=== PATIENT | female | born 1950 | race Caucasian/White ===

== ENCOUNTER 2017-11-23 19:07 | Emergency (ER) | payer MEDICAID, MEDICARE ==
[~2017-11-23] VITALS: Ht 162.6 cm; Wt 48.8 kg
[~2017-11-23 19:07] MED LIST: ASPI325T17 PO; NICO-486 TD; SIMV20TA PO
[2017-11-23 19:09] VITALS: BP 110/72
== END 2017-11-23 20:49 | disposition home or self-care (01) ==
LOC: ED 20:43
DX: S32.020A Wedge compression fracture of second lumbar vertebra, initial encounter for closed fracture (principal); M48.56XA Collapsed vertebra, not elsewhere classified, lumbar region, initial encounter for fracture; I10 Essential (primary) hypertension; F17.200 Nicotine dependence, unspecified, uncomplicated; Z72.9 Problem related to lifestyle, unspecified; X58.XXXA Exposure to other specified factors, initial encounter; Y93.89 Activity, other specified; Y92.89 Other specified places as the place of occurrence of the external cause; Y99.8 Other external cause status
CPT/HCPCS: 72110; 99284

== ENCOUNTER 2020-02-23 21:49 | Emergency (ER) | payer MEDICARE ==
--- NOTE | 2020-02-23 21:54 | NUR ---
PT STANDING IN SANDERS, INSISTING SHE NEEDS TO LEAVE, STATED "YOU CAN'T HOLD ME". PT AMBULATORY TO EXIT W/ STEADY GAIT.
== END 2020-02-23 21:58 | disposition left against medical advice (07) ==
LOC: ED 21:51
DX: F10.10 Alcohol abuse, uncomplicated (principal); Z53.21 Procedure and treatment not carried out due to patient leaving prior to being seen by health care provider

== ENCOUNTER 2021-01-11 18:22 | Inpatient (IN) | payer MEDICARE ==
[~2021-01-11] VITALS: Ht 162.6 cm; Wt 53.5 kg
--- NOTE | 2021-01-11 18:35 | NUR ---
cc "im not feeling very good. i started getting a back ache and now i have labor pains" 03/08. pt points to RLQ. + n/v, pt states shes throwing bile "or white stuff". hr 120 on monitor. pt requesting heating pad
--- NOTE | 2021-01-11 18:40 | NUR ---
c/o pain for 1 week, last bm "a week ago".
[2021-01-11] MEDS ORDERED: SODIUM CHLORIDE FLUSH 10ML SYR IVF ONE (19:00)
[2021-01-11] MEDS ORDERED: SODIUM CHLORIDE 0.9% 1,000ML IVBOLUS ONE (19:00)
[2021-01-11] MEDS ORDERED: MORPHINE SULFATE 4 MG/ML, 1ML IVPush PRN (19:00)
[2021-01-11 19:05] LABS: MEAN CORPUSCULAR HEMOGLOBIN 31.1 pg (27.0-34.8); MEAN CORPUSCULAR HGB CONC 33.8 g/dL (32.4-35.8); MEAN PLATELET VOLUME 8.1 fL (7.4-10.4); PLATELET COUNT 711 x10^3/uL (130-400); RED BLOOD COUNT 3.88 x10^6/uL (3.82-5.3); RED CELL DISTRIBUTION WIDTH 14.7 % (9.6-15.2)
[2021-01-11 19:07] LABS: MD YES
[2021-01-11 19:14] LABS: ALANINE AMINOTRANSFERASE 7 U/L (12-78); ALBUMIN 2.5 g/dL (3.4-5.0); ANION GAP 8 mmol/L (5-15); CALCIUM 9.1 mg/dL (8.5-10.1); CHLORIDE 107 mmol/L (98-107); CREATININE 0.68 mg/dL (0.55-1.02)
[2021-01-11 19:16] LABS: ALKALINE PHOSPHATASE 115 U/L (45-117); BILIRUBIN,TOTAL 0.5 mg/dL (0.2-1.0); TOTAL PROTEIN 7.9 g/dL (6.4-8.2)
[2021-01-11 19:41] LABS: LYMPH#(MANUAL) 2.85 x10^3/uL (1-3.4); LYMPHS% (MANUAL) 11 % (22-44); MONOS#(MANUAL) 0.26 x10^3/uL (0.3-2.7); MONOS% (MANUAL) 1 % (2-9); SEG#(MANUAL) 22.79 x10^3/uL (1.8-6.8); SEGS% (MANUAL) 88 % (42-75)
[2021-01-11 19:42] LABS: <PLATELET ESTIMATE> INCREASED; <PLT MORPHOLOGY> NORMAL PLT MORPH; <RBC MORPHOLOGY> NORMAL; TOXIC GRAN 1+
[2021-01-11 19:58] LABS: MICROSCOPIC INDICATED
[2021-01-11] MEDS ORDERED: ONDANSETRON 2MG/ML, 2ML ONE (20:54)
[2021-01-11] MEDS ORDERED: KETOROLAC 30 MG/1 ML ONE (20:54)
[2021-01-11] MEDS ORDERED: POTASSIUM CHLORIDE 20 MEQ TAB.ER.PRT ONE (20:54)
[2021-01-11] MEDS ORDERED: POTASSIUM CHLORIDE 20 MEQ TAB.ER.PRT PO ONE (21:00)
[2021-01-11] MEDS ORDERED: ONDANSETRON 2MG/ML, 2ML IVPush ONE (21:00)
[2021-01-11] MEDS ORDERED: KETOROLAC 30 MG/1 ML IVPush ONE (21:00)
[2021-01-11] MEDS ORDERED: CEFTRIAXONE 1,000 MG in DEXTROSE 5% 50 ML IVPB ONE (21:00)
--- NOTE | 2021-01-11 21:09 | NUR ---
pt refusing morphine, but still having pain and would like something else. dr tilley aware, new orders placed.
[2021-01-11] MEDS ORDERED: MELATONIN 5 MG TABLET PO PRN (22:00)
[2021-01-11] MEDS: ENOXAPARIN 40 MG/0.4 ML SQ SCH (22:00)
[2021-01-11] MEDS ORDERED: ENALAPRILAT 1.25 MG/ML, 2ML IVPush PRN (22:00)
[2021-01-11] MEDS ORDERED: ONDANSETRON ODT 4 MG PO PRN (22:00)
[2021-01-11] MEDS ORDERED: LIDODERM 5% PATCH TD PRN (22:00)
[2021-01-11] MEDS ORDERED: BISACODYL 10 MG SUPP PR PRN (22:00)
--- NOTE | 2021-01-11 22:18 | NUR ---
REPORT GIVEN TO ERIK
[2021-01-11 22:57] VITALS: BP 134/76
[2021-01-11] MEDS: SODIUM CHLORIDE 0.9% 1,000 ML IV SCH (23:04)
[2021-01-12 02:10] VITALS: BP 138/76
[2021-01-12] MEDS: KETOROLAC 30 MG/1 ML IV PRN ×3 (03:10→16:42)
[2021-01-12 05:06] LABS: MEAN CORPUSCULAR HEMOGLOBIN 30.2 pg (27.0-34.8); MEAN CORPUSCULAR HGB CONC 32.8 g/dL (32.4-35.8); MEAN PLATELET VOLUME 8.4 fL (7.4-10.4); PLATELET COUNT 566 x10^3/uL (130-400); RED BLOOD COUNT 3.25 x10^6/uL (3.82-5.3); RED CELL DISTRIBUTION WIDTH 14.9 % (9.6-15.2)
[2021-01-12 05:17] LABS: ANION GAP 6 mmol/L (5-15); CALCIUM 7.9 mg/dL (8.5-10.1); CHLORIDE 114 mmol/L (98-107); CREATININE 0.51 mg/dL (0.55-1.02)
[2021-01-12 06:00] LABS: MD YES
[2021-01-12 06:02] LABS: <PLATELET ESTIMATE> INCREASED; <PLT MORPHOLOGY> NORMAL PLT MORPH; <RBC MORPHOLOGY> NORMAL; LYMPH#(MANUAL) 1.16 x10^3/uL (1-3.4); LYMPHS% (MANUAL) 5 % (22-44); MONOS#(MANUAL) 0.93 x10^3/uL (0.3-2.7); MONOS% (MANUAL) 4 % (2-9); SEG#(MANUAL) 21.11 x10^3/uL (1.8-6.8); SEGS% (MANUAL) 91 % (42-75)
[2021-01-12 06:28] VITALS: BP 116/56
[2021-01-12] MEDS: SODIUM CHLORIDE 0.9% 1,000 ML IV SCH ×2 (09:07→20:39)
[2021-01-12] MEDS: CEFTRIAXONE 1,000 MG in DEXTROSE 5% 50 ML IVPB SCH ×2 (09:08→21:26)
[2021-01-12 12:53] VITALS: BP 113/46
[2021-01-12] MEDS ORDERED: OMNIPAQUE 350 MG/ML, 100ML BOTTLE ONE (18:00)
[2021-01-12] MEDS ORDERED: DOCUSATE 100 MG CAPSULE PO PRN (18:00)
[2021-01-12 18:33] VITALS: BP 109/61
[2021-01-12] MEDS ORDERED: SENNA 176 MG/5 ML ORAL SOL PO SCH (21:00)
[2021-01-12] MEDS: POLYETHYLENE GLYCOL 17 GM PACKET PO SCH (21:27)
[2021-01-12] MEDS: ENOXAPARIN 40 MG/0.4 ML SQ SCH (21:27)
[2021-01-12] MEDS ORDERED: FENTANYL PF 250 MCG/5ML ONE (22:14)
[2021-01-12] MEDS ORDERED: MIDAZOLAM 1 MG/ML, 2ML ONE (22:14)
[2021-01-12] MEDS ORDERED: ONDANSETRON 2MG/ML, 2ML ONE (22:54)
[2021-01-12] MEDS ORDERED: PROPOFOL 10 MG/ML, 20ML ONE (22:54)
[2021-01-12] MEDS ORDERED: SUCCINYLCHOLINE 20 MG/ML, 10ML ONE (22:54)
[2021-01-12] MEDS ORDERED: ROCURONIUM 10 MG/ML,10ML ONE (22:54)
[2021-01-12] MEDS ORDERED: DEXAMETHASONE 4 MG/ML, 1ML ONE (22:54)
[2021-01-12] MEDS ORDERED: PROTAMINE SULFATE 10 MG/ML, 25ML ONE (23:04)
[2021-01-12] MEDS ORDERED: HEPARIN 1,000 UNITS/ML, 10ML ONE (23:04)
[2021-01-12] MEDS ORDERED: BUPIVACAINE/PF 0.25% ONE (23:05)
[2021-01-12] MEDS ORDERED: EPINEPHRINE 1 MG/ML, 1ML ONE (23:06)
[2021-01-12] MEDS ORDERED: FENTANYL PF 100 MCG/2ML IV PRN (23:30)
[2021-01-12] MEDS ORDERED: LABETALOL 5MG/ML, 20ML IV PRN (23:30)
[2021-01-12] MEDS ORDERED: MEPERIDINE/PF 25MG/0.5ML IVPush PRN (23:30)
[2021-01-12] MEDS ORDERED: PROMETHAZINE 25 MG/ML, 1ML IV PRN (23:30)
[2021-01-12] MEDS ORDERED: ONDANSETRON 2MG/ML, 2ML IVPush PRN (23:30)
[2021-01-12] MEDS ORDERED: METOCLOPRAMIDE 5 MG/ML, 2ML IV PRN (23:30)
[2021-01-12] MEDS ORDERED: HYDROmorphone 1 MG/ML, 1ML INJ IV PRN (23:30)
[2021-01-12] MEDS ORDERED: ALBUTEROL SULFATE 2.5 MG/3 ML NPPB PRN (23:30)
[2021-01-12] MEDS ORDERED: KETOROLAC 30 MG/1 ML IV PRN (23:30)
[2021-01-12] MEDS ORDERED: DIAZEPAM 5 MG/ML, 2ML IV PRN ×2 (23:30)
[2021-01-12] MEDS ORDERED: OXYcodone 5 MG/5 ML ORAL.SOL UDC PO PRN (23:30)
[2021-01-12] MEDS ORDERED: hydrALAzine 20 MG/ML, 1ML IV PRN (23:30)
[2021-01-13] MEDS ORDERED: VISIPAQUE 270 MG/ML, 50ML BOTTLE ONE (00:02)
[2021-01-13] MEDS ORDERED: VISIPAQUE 270 MG/ML, 150ML BOTTLE ONE (00:02)
[2021-01-13] MEDS: ACETAMINOPHEN 325 MG TABLET PO PRN ×5 (01:33→21:59)
[2021-01-13] MEDS: METRONIDAZOLE PMX 500MG/100ML 100 ML IV SCH ×3 (01:34→17:39)
[2021-01-13] MEDS: NICOTINE 14MG/24 HR PATCH.TD24 TD SCH ×2 (01:34→21:59)
[2021-01-13] MEDS ORDERED: KETOROLAC 30 MG/1 ML IVPush ONE (02:30)
[2021-01-13 03:56] VITALS: BP_SYST 116; BP_SYST 134; BP_DIAS 60; BP_DIAS 65
[2021-01-13 05:14] LABS: BASOPHILS % (AUTO) 0 % (0-1); EOSINOPHILS % (AUTO) 0 % (1-7); LYMPHOCYTES % (AUTO) 5 % (22-44); MEAN CORPUSCULAR HEMOGLOBIN 30.6 pg (27.0-34.8); MEAN CORPUSCULAR HGB CONC 33.1 g/dL (32.4-35.8); MEAN PLATELET VOLUME 8.3 fL (7.4-10.4); MONOCYTES % (AUTO) 3 % (2-9); NEUTROPHILS % (AUTO) 91 % (42-75); PLATELET COUNT 480 x10^3/uL (130-400); RED BLOOD COUNT 2.87 x10^6/uL (3.82-5.3); RED CELL DISTRIBUTION WIDTH 15.1 % (9.6-15.2)
[2021-01-13 05:22] LABS: ANION GAP 7 mmol/L (5-15); CALCIUM 7.5 mg/dL (8.5-10.1); CHLORIDE 112 mmol/L (98-107)
[2021-01-13 05:25] LABS: CREATININE 0.26 mg/dL (0.55-1.02)
[2021-01-13 05:29] LABS: MD NO
[2021-01-13 06:39] VITALS: BP 111/57
[2021-01-13] MEDS: CEFTRIAXONE 1,000 MG in DEXTROSE 5% 50 ML IVPB SCH (08:57)
[2021-01-13] MEDS: POLYETHYLENE GLYCOL 17 GM PACKET PO SCH (08:57)
[2021-01-13 13:30] LABS: BASOPHILS % (AUTO) 0 % (0-1); EOSINOPHILS % (AUTO) 0 % (1-7); LYMPHOCYTES % (AUTO) 4 % (22-44); MEAN CORPUSCULAR HEMOGLOBIN 30.8 pg (27.0-34.8); MEAN CORPUSCULAR HGB CONC 33.1 g/dL (32.4-35.8); MEAN PLATELET VOLUME 8.2 fL (7.4-10.4); MONOCYTES % (AUTO) 3 % (2-9); NEUTROPHILS % (AUTO) 93 % (42-75); PLATELET COUNT 474 x10^3/uL (130-400); RED BLOOD COUNT 3.03 x10^6/uL (3.82-5.3); RED CELL DISTRIBUTION WIDTH 14.8 % (9.6-15.2)
[2021-01-13 13:39] LABS: MD NO
[2021-01-13 14:36] VITALS: BP 100/49
[2021-01-13] MEDS: SODIUM CHLORIDE 0.9% 1,000 ML IV SCH (14:42)
[2021-01-13 18:07] LABS: CLOSTRIDIUM DIFFICILE ANTIGEN NEGATIVE; CLOSTRIDIUM DIFFICILE TOXIN NEGATIVE (Negative)
[2021-01-13 18:29] LABS: CRYPTOSPORIDIUM ANTIGEN Negative (Negative)
[2021-01-13 20:16] VITALS: BP 96/62
[2021-01-13] MEDS ORDERED: SENNA 176 MG/5 ML ORAL SOL PO SCH (21:00)
[2021-01-14 00:21] VITALS: BP 111/67
[2021-01-14] MEDS: SODIUM CHLORIDE 0.9% 1,000 ML IV SCH (01:16)
[2021-01-14] MEDS: METRONIDAZOLE PMX 500MG/100ML 100 ML IV SCH ×3 (01:16→17:56)
[2021-01-14 05:02] LABS: BASOPHILS % (AUTO) 0 % (0-1); EOSINOPHILS % (AUTO) 0 % (1-7); LYMPHOCYTES % (AUTO) 8 % (22-44); MEAN CORPUSCULAR HEMOGLOBIN 30.9 pg (27.0-34.8); MEAN CORPUSCULAR HGB CONC 33.5 g/dL (32.4-35.8); MEAN PLATELET VOLUME 8.1 fL (7.4-10.4); MONOCYTES % (AUTO) 4 % (2-9); NEUTROPHILS % (AUTO) 88 % (42-75); PLATELET COUNT 413 x10^3/uL (130-400); RED BLOOD COUNT 2.78 x10^6/uL (3.82-5.3); RED CELL DISTRIBUTION WIDTH 15.1 % (9.6-15.2)
[2021-01-14 05:12] LABS: CHLORIDE 116 mmol/L (98-107)
[2021-01-14 05:13] LABS: MD NO
[2021-01-14 05:17] LABS: ALANINE AMINOTRANSFERASE 9 U/L (12-78); ALBUMIN 1.5 g/dL (3.4-5.0); ALKALINE PHOSPHATASE 75 U/L (45-117); ANION GAP 7 mmol/L (5-15); BILIRUBIN,TOTAL 0.3 mg/dL (0.2-1.0); CALCIUM 7.6 mg/dL (8.5-10.1); TOTAL PROTEIN 5.1 g/dL (6.4-8.2)
[2021-01-14 07:06] VITALS: BP 120/71
[2021-01-14] MEDS ORDERED: OMNIPAQUE 350 MG/ML, 50 ML BOTTLE ONE (08:16)
[2021-01-14] MEDS ORDERED: OXYcodone 5 MG/5 ML ORAL.SOL UDC PO PRN (09:00)
[2021-01-14] MEDS ORDERED: FENTANYL PF 100 MCG/2ML IV PRN (09:00)
[2021-01-14] MEDS ORDERED: PROMETHAZINE 25 MG/ML, 1ML IVPush PRN (09:00)
[2021-01-14] MEDS ORDERED: HALOPERIDOL 5 MG/ML IV PRN (09:00)
[2021-01-14] MEDS ORDERED: ACETAMINOPHEN 325 MG TABLET PO PRN (09:00)
[2021-01-14] MEDS ORDERED: HYDROmorphone 1 MG/ML, 1ML INJ IVPush PRN (09:00)
[2021-01-14] MEDS ORDERED: LABETALOL 5MG/ML, 20ML IV PRN (09:00)
[2021-01-14] MEDS ORDERED: DIPHENHYDRAMINE 50 MG/ML, 1ML IVPush PRN (09:00)
[2021-01-14] MEDS ORDERED: MEPERIDINE/PF 25MG/0.5ML IVPush PRN (09:00)
[2021-01-14] MEDS ORDERED: hydrALAzine 20 MG/ML, 1ML IV PRN (09:00)
[2021-01-14] MEDS ORDERED: FENTANYL PF 100 MCG/2ML ONE (09:07)
[2021-01-14] MEDS ORDERED: CEFAZOLIN 1,000 MG ONE (09:31)
[2021-01-14] MEDS ORDERED: PROPOFOL 10 MG/ML, 20ML ONE (09:31)
[2021-01-14] MEDS ORDERED: ONDANSETRON 2MG/ML, 2ML ONE (09:31)
[2021-01-14] MEDS ORDERED: DEXAMETHASONE 4 MG/ML, 1ML ONE (09:31)
[2021-01-14] MEDS ORDERED: KETOROLAC 30 MG/1 ML ONE (09:58)
[2021-01-14] MEDS ORDERED: ACETAMINOPHEN 650 MG/20.3 ML UDC ONE (09:59)
[2021-01-14] MEDS ORDERED: KETOROLAC 30 MG/1 ML IV PRN (10:00)
[2021-01-14] MEDS ORDERED: SENNA 176 MG/5 ML ORAL SOL PO PRN (10:00)
[2021-01-14] MEDS ORDERED: POLYETHYLENE GLYCOL 17 GM PACKET PO PRN (10:00)
[2021-01-14] MEDS: CEFTRIAXONE 2 GM in DEXTROSE 5% 50 ML IVPB SCH (11:25)
[2021-01-14 12:06] VITALS: BP 114/61
[2021-01-14] MEDS ORDERED: POTASSIUM CHLORIDE 20 MEQ PACKET PO ONE (15:00)
[2021-01-14] MEDS ORDERED: DIPHENOXYLATE/ATROPINE TABLET PO PRN (15:00)
[2021-01-14] MEDS: LACTOBACILLUS CHEW TABLET PO SCH ×2 (16:19→20:24)
[2021-01-14 19:42] VITALS: BP 109/60
[2021-01-14] MEDS: NICOTINE 14MG/24 HR PATCH.TD24 TD SCH (21:57)
[2021-01-14] MEDS ORDERED: SODIUM CHLORIDE 0.9% 1,000 ML IV SCH (22:30)
[2021-01-14 23:30] VITALS: BP 110/57
[2021-01-15] MEDS: METRONIDAZOLE PMX 500MG/100ML 100 ML IV SCH ×3 (01:36→18:52)
[2021-01-15] MEDS: ACETAMINOPHEN 325 MG TABLET PO PRN ×3 (03:26→18:52)
[2021-01-15 05:55] LABS: BASOPHILS % (AUTO) 0 % (0-1); EOSINOPHILS % (AUTO) 0 % (1-7); LYMPHOCYTES % (AUTO) 9 % (22-44); MEAN CORPUSCULAR HEMOGLOBIN 30.6 pg (27.0-34.8); MEAN CORPUSCULAR HGB CONC 33.1 g/dL (32.4-35.8); MEAN PLATELET VOLUME 8.3 fL (7.4-10.4); MONOCYTES % (AUTO) 5 % (2-9); NEUTROPHILS % (AUTO) 85 % (42-75); PLATELET COUNT 406 x10^3/uL (130-400); RED BLOOD COUNT 2.53 x10^6/uL (3.82-5.3); RED CELL DISTRIBUTION WIDTH 15.4 % (9.6-15.2)
[2021-01-15 05:57] LABS: MD NO
[2021-01-15 06:06] LABS: CHLORIDE 115 mmol/L (98-107)
[2021-01-15 06:11] LABS: % IRON SATURATION 10 % (20-55); ANION GAP 8 mmol/L (5-15); CALCIUM 7.4 mg/dL (8.5-10.1); CREATININE 0.45 mg/dL (0.55-1.02); IRON LEVEL 10 mcg/dL (50-170); TOTAL IRON BINDING CAPACITY 104 mcg/dL (250-450)
[2021-01-15 07:25] VITALS: BP 121/72
[2021-01-15] MEDS: CEFTRIAXONE 2 GM in DEXTROSE 5% 50 ML IVPB SCH (08:50)
[2021-01-15] MEDS: LACTOBACILLUS CHEW TABLET PO SCH ×3 (08:50→21:05)
[2021-01-15] MEDS ORDERED: MAGNESIUM SULFATE PMX 4GM/100M 100 ML IV ONE (09:00)
[2021-01-15 12:13] VITALS: BP 108/61
[2021-01-15] MEDS ORDERED: FERROUS SULFATE 325 MG TABLET PO SCH (14:00)
[2021-01-15 18:53] VITALS: BP 115/62
[2021-01-15] MEDS: NICOTINE 14MG/24 HR PATCH.TD24 TD SCH (21:04)
[2021-01-15] MEDS ORDERED: SODIUM CHLORIDE 0.9% 1,000 ML IV SCH (22:30)
[2021-01-16] MEDS: METRONIDAZOLE PMX 500MG/100ML 100 ML IV SCH (01:46)
[2021-01-16 01:53] VITALS: BP 120/64
[2021-01-16] MEDS: ACETAMINOPHEN 325 MG TABLET PO PRN ×2 (02:03→09:02)
[2021-01-16 04:55] LABS: BASOPHILS % (AUTO) 1 % (0-1); EOSINOPHILS % (AUTO) 1 % (1-7); LYMPHOCYTES % (AUTO) 10 % (22-44); MEAN CORPUSCULAR HEMOGLOBIN 30.3 pg (27.0-34.8); MEAN CORPUSCULAR HGB CONC 32.9 g/dL (32.4-35.8); MONOCYTES % (AUTO) 6 % (2-9); NEUTROPHILS % (AUTO) 83 % (42-75); PLATELET COUNT 443 x10^3/uL (130-400); RED BLOOD COUNT 2.86 x10^6/uL (3.82-5.3); RED CELL DISTRIBUTION WIDTH 15.1 % (9.6-15.2)
[2021-01-16 05:01] LABS: MD NO
[2021-01-16 05:03] LABS: ANION GAP 6 mmol/L (5-15); CALCIUM 7.6 mg/dL (8.5-10.1); CHLORIDE 112 mmol/L (98-107); CREATININE 0.41 mg/dL (0.55-1.02)
[2021-01-16 06:54] VITALS: BP 117/64
[2021-01-16] MEDS: LACTOBACILLUS CHEW TABLET PO SCH (09:02)
[2021-01-16] MEDS: CEFTRIAXONE 2 GM in DEXTROSE 5% 50 ML IVPB SCH (09:03)
[2021-01-16] MEDS ORDERED: ACET325T26 PO (09:52)
[2021-01-16] MEDS ORDERED: NICO-486 TD (09:52)
[2021-01-16] MEDS ORDERED: ACID1TAB7 PO (09:52)
[2021-01-16] MEDS ORDERED: FERR-51 PO (09:52)
[2021-01-16] MEDS ORDERED: ATOR40TA78 PO (09:56)
[2021-01-16] MEDS ORDERED: ASPI81TA45 PO (10:00)
[2021-01-16] MEDS ORDERED: ASPIRIN 81 MG TABLET EC PO SCH (10:00)
[2021-01-16 12:02] VITALS: BP 118/69
[2021-01-16] MEDS ORDERED: ATORVASTATIN 40 MG TABLET PO SCH (21:00)
== END 2021-01-16 13:50 | disposition home or self-care (01) | DRG 853 ==
LOC: ED 20:50 → EDIP 20:57 → ED 21:08 → 3N 22:46 → 5SO 01-13 12:08 → 4EST 01-13 22:20 → DCLOUNGE 01-16 13:36
PROVIDERS: ADMIT Family Medicine; ATTEND Internal Medicine
PROC: 04QK0ZZ Repair Right Femoral Artery, Open Approach (ICD-10-PCS; 2021-01-13)
PROC: 04V03DZ Restriction of Abdominal Aorta with Intraluminal Device, Percutaneous Approach (ICD-10-PCS; 2021-01-13)
PROC: B4101ZZ Fluoroscopy of Abdominal Aorta using Low Osmolar Contrast (ICD-10-PCS; 2021-01-13)
PROC: 0T768DZ Dilation of Right Ureter with Intraluminal Device, Via Natural or Artificial Opening Endoscopic (ICD-10-PCS; 2021-01-14)
PROC: BT141ZZ Fluoroscopy of Kidneys, Ureters and Bladder using Low Osmolar Contrast (ICD-10-PCS; 2021-01-14)
PROC: 02HV33Z Insertion of Infusion Device into Superior Vena Cava, Percutaneous Approach (ICD-10-PCS; principal; 2021-01-16)
PROC: B548ZZA Ultrasonography of Superior Vena Cava, Guidance (ICD-10-PCS; 2021-01-16)
PROC: B5181ZA Fluoroscopy of Superior Vena Cava using Low Osmolar Contrast, Guidance (ICD-10-PCS; 2021-01-16)
DX: A41.51 Sepsis due to Escherichia coli [E. coli] (principal); E43 Unspecified severe protein-calorie malnutrition; N10 Acute pyelonephritis; K55.9 Vascular disorder of intestine, unspecified; R57.9 Shock, unspecified; N39.0 Urinary tract infection, site not specified; D50.9 Iron deficiency anemia, unspecified; E78.5 Hyperlipidemia, unspecified; E83.42 Hypomagnesemia; E87.6 Hypokalemia; F10.10 Alcohol abuse, uncomplicated; F17.210 Nicotine dependence, cigarettes, uncomplicated; I10 Essential (primary) hypertension; I71.4 Abdominal aortic aneurysm, without rupture; J44.9 Chronic obstructive pulmonary disease, unspecified; N20.0 Calculus of kidney; Z82.49 Family history of ischemic heart disease and other diseases of the circulatory system; Z85.3 Personal history of malignant neoplasm of breast; Z86.73 Personal history of transient ischemic attack (TIA), and cerebral infarction without residual deficits; Z88.0 Allergy status to penicillin; Z90.710 Acquired absence of both cervix and uterus; Z86.79 Personal history of other diseases of the circulatory system; Z71.6 Tobacco abuse counseling; Z71.41 Alcohol abuse counseling and surveillance of alcoholic; Z20.822 Contact with and (suspected) exposure to COVID-19; D47.3 Essential (hemorrhagic) thrombocythemia
CPT/HCPCS: 34701; 34812; 36415; 36573; 71260; 74021; 74177; 74420; 80048; 80053; 81001; 82330; 83540; 83550; 83605; 83690; 83735; 85025; 86850; 86900; 87040; 87046; 87077; 87086; 87186; 87324; 87328; 87329; 87427; 87635; 93005; 96361; 96374; 96375; 99285; G0378; J0171; J0690; J0696; J1100; J1644; J1650; J1885; J2250; J2405; J2704; J2720; J3010; Q9966; Q9967; C1751; C1758; C1760; C1768; C1769; C1894; C2617; C2628; J0330; J3475; J7030

== ENCOUNTER 2021-01-31 10:51 | Emergency (ER) | payer MEDICARE ==
[~2021-01-31] VITALS: Ht 162.6 cm; Wt 45.8 kg
[~2021-01-31 10:51] MED LIST changes: +ACET325T26 PO; +ACID1TAB7 PO; +ASPI81TA45 PO; +ATOR40TA78 PO; +FERR-51 PO
[2021-01-31 10:52] VITALS: BP 124/67
--- NOTE | 2021-01-31 11:04 | NUR ---
PT AMBULATORY TO ROOM FROM TRIAGE. PT C/O BALES CATHETER STATING "IT JUST HURTS AND I WANT IT OUT." CONNECTED TO MONITORS, CALL LIGHT WITHIN REACH.
--- NOTE | 2021-01-31 11:23 | NUR ---
PT TOLERATED BALES CATHETER REMOVAL WELL.
--- NOTE | 2021-01-31 11:38 | NUR ---
Patient given discharge instructions and they have confirmed that they understand the instructions. Patient ambulatory with steady gait.
== END 2021-01-31 11:39 | disposition home or self-care (01) ==
LOC: ED 10:53
DX: Z46.6 Encounter for fitting and adjustment of urinary device (principal); I10 Essential (primary) hypertension; F17.200 Nicotine dependence, unspecified, uncomplicated; Z86.73 Personal history of transient ischemic attack (TIA), and cerebral infarction without residual deficits; Z85.3 Personal history of malignant neoplasm of breast; Z90.89 Acquired absence of other organs; Z90.710 Acquired absence of both cervix and uterus
CPT/HCPCS: 96365; 99281; J0696

== ENCOUNTER 2021-06-22 12:24 | Emergency (ER) | payer MEDICARE ==
[~2021-06-22] VITALS: Ht 162.6 cm; Wt 46.0 kg
[2021-06-22 13:13] LABS: MICROSCOPIC INDICATED
[2021-06-22 13:31] LABS: BASOPHILS % (AUTO) 1 % (0-1); EOSINOPHILS % (AUTO) 1 % (1-7); LYMPHOCYTES % (AUTO) 20 % (22-44); MEAN CORPUSCULAR HEMOGLOBIN 30.5 pg (27.0-34.8); MEAN CORPUSCULAR HGB CONC 33.3 g/dL (32.4-35.8); MEAN PLATELET VOLUME 7.9 fL (7.4-10.4); MONOCYTES % (AUTO) 6 % (2-9); NEUTROPHILS % (AUTO) 72 % (42-75); PLATELET COUNT 259 x10^3/uL (130-400); RED BLOOD COUNT 4.14 x10^6/uL (3.82-5.3); RED CELL DISTRIBUTION WIDTH 15.3 % (9.6-15.2)
[2021-06-22 13:42] LABS: ALANINE AMINOTRANSFERASE 15 U/L (12-78); ALBUMIN 3.2 g/dL (3.4-5.0); ANION GAP 6 mmol/L (5-15); CALCIUM 8.3 mg/dL (8.5-10.1); CHLORIDE 112 mmol/L (98-107); CREATININE 0.88 mg/dL (0.55-1.02)
[2021-06-22 13:44] LABS: ALKALINE PHOSPHATASE 76 U/L (45-117); BILIRUBIN,TOTAL 0.4 mg/dL (0.2-1.0); TOTAL PROTEIN 6.9 g/dL (6.4-8.2)
[2021-06-22 14:27] VITALS: BP 117/56
--- NOTE | 2021-06-22 14:27 | NUR ---
DC EDUCATION PROVIDED, PT DEMONSTRATES UNDERSTANDING. PT AMBULATED STEADILY TO DC WITH RN
--- NOTE | 2021-06-25 20:27 | NUR ---
pt had positive urine culture. spoke with erp, pt was prescribed proper abx. no interventions
== END 2021-06-22 14:29 | disposition home or self-care (01) ==
LOC: ED 14:20
DX: N30.00 Acute cystitis without hematuria (principal); R00.0 Tachycardia, unspecified; I10 Essential (primary) hypertension; Z90.89 Acquired absence of other organs; Z90.710 Acquired absence of both cervix and uterus; Z85.3 Personal history of malignant neoplasm of breast; Z86.73 Personal history of transient ischemic attack (TIA), and cerebral infarction without residual deficits
CPT/HCPCS: 36415; 51701; 80053; 81001; 85025; 87077; 87086; 87186; 99283; P9612